=== PATIENT | female | born 2000 | race Two or more races ===

== ENCOUNTER 2024-04-11 21:13 | Emergency (ER) | payer MEDICAID ==
[~2024-04-11] VITALS: Ht 157.5 cm; Wt 98.6 kg
[2024-04-11 21:28] VITALS: TEMP 99.5
[2024-04-11 21:41] LABS: COVID AG,FIA SOURCE NASAL SWAB
[2024-04-11 21:59] LABS: INFLUENZA TYPE A NEGATIVE FOR TYPE A (NEGATIVE); INFLUENZA TYPE B NEGATIVE FOR TYPE B (NEGATIVE); SARS-COV2 (COVID) ANTIGEN,FIA Negative (Negative)
[2024-04-11 22:40] LABS: BASOPHILS % (AUTO) 0.4 % (0.0-2.0); EOSINOPHILS % (AUTO) 0.1 % (1.0-6.0); HEMATOCRIT 45.9 % (36-46); HEMOGLOBIN 15.4 g/dL (12.0-16.0); LYMPHOCYTES # (AUTO) 1.2 K/uL (1.0-4.8); LYMPHOCYTES % (AUTO) 11.7 % (22.0-44.0); MEAN CORPUSCULAR HEMOGLOBIN 27.5 pg (26.0-34.0); MEAN CORPUSCULAR HGB CONC 33.6 G/dL (31.0-37.0); MEAN CORPUSCULAR VOLUME 82 fL (80-100); MONOCYTES # (AUTO) 0.8 K/uL (0.1-1.0); MONOCYTES % (AUTO) 7.8 % (2.0-9.0); PLATELET COUNT (AUTO) 273 K/uL (150-450); RED CELL DISTRIBUTION WIDTH 14.1 % (11.5-14.5)
[2024-04-11] MEDS: ONDANSETRON HCL 4 MG/2 ML VIAL IVP ONE (22:41)
[2024-04-11] MEDS: SODIUM CHLORIDE 0.9% 1,000 ML IV ONE (22:41)
[2024-04-11] MEDS: CIPROFLOXACIN HCL 250 MG TABLET PO ONE (22:41)
[2024-04-11] MEDS: DIPHENOXYLATE/ATROP 2.5-0.025 MG TABLET PO ONE (22:42)
[2024-04-11 22:46] LABS: ANION GAP 13 mmol/L (8-16); CALCIUM, TOTAL 8.8 mg/dL (8.8-10.5); CARBON DIOXIDE 27 mmol/L (22-29); CHLORIDE 98 mmol/L (98-107); CREATININE 0.74 mg/dL (0.60-1.30); GLOMERULAR FILTR. RATE CALC > 60 mL/min (>60); GLUCOSE,RANDOM 254 mg/dL (70-110); POTASSIUM 3.4 mmol/L (3.5-5.1); SODIUM SERUM 138 mmol/L (136-145); UREA NITROGEN, BLOOD 11 mg/dL (7-18)
[2024-04-11 22:51] VITALS: BP 121/82; PULSE 122; RESP 18; O2SAT 96
[2024-04-11 22:57] LABS: HCG,QUANTITATIVE < 1 mIU/mL (0-6)
[2024-04-11] MEDS ORDERED: ONDA-104 PO (23:32)
== END 2024-04-12 00:02 | disposition home or self-care (01) ==
LOC: EMS 21:13
DX: R11.2 Nausea with vomiting, unspecified (principal); R19.7 Diarrhea, unspecified; R50.9 Fever, unspecified; E11.9 Type 2 diabetes mellitus without complications; Z20.822 Contact with and (suspected) exposure to COVID-19
CPT/HCPCS: 99283; 96374; 96361; 87426; 80048; 84702; 85025; 87804; 36415; 82962; J2405; J7030